=== PATIENT | male | born 1990 | race American Indian/Alaskan Native ===

== ENCOUNTER 2016-11-26 16:07 | Emergency (ER) | payer SELFPAY ==
[2016-11-26] MEDS ORDERED: DELTASONE PO ONE (18:10)
[2016-11-26] MEDS ORDERED: MOTRIN PO ONE (18:10)
[2016-11-26] MEDS ORDERED: NACL 0.9% 1000 ML 1,000 ML IV ONE ×2 (18:10→20:20)
--- NOTE | 2016-11-26 18:13 | Emergency Department Report ---
HPI - General Chief Complaint: Upper Respiratory Infection Time Seen by Provider: 11/26/16 18:09 - HPI HPI: 25-year-old -[place] Citizen male comes in with complaint of upper respiratory symptoms. He complains of body aches, cough and runny nose, nausea vomiting, fever, chills, sneezing and sore throat. He reports he had 2 vomiting episodes last night. He does deny abdominal pain admits to headache. He reports no past medical history and currently takes no medication. ED Past Medical Hx - Past Medical History Previous Medical History?: No - Surgical History Past Surgical History?: No - Social History Smoking Status: Never Smoker Substance Use Type: Alcohol - Medications Home Medications: Home Medications Medication Instructions Recorded Confirmed Last Taken Type Amoxicillin [Trimox CAP] 500 mg PO Q8H #30 capsule 04/02/14 Unknown Rx oxyCODONE /ACETAMINOPHEN [Percocet 1 tab PO Q4-6H PRN #16 tablet 04/02/14 Unknown Rx 5/325] predniSONE [Deltasone] 50 mg PO QDAY #3 tab 04/02/14 Unknown Rx Ibuprofen [Motrin 800 MG tab] 800 mg PO Q8HR PRN #30 tablet 11/26/16 Unknown Rx ED Review of Systems ROS: Stated complaint: FLU SX/DEHYDRATED Other details as noted in HPI Physical Exam - Physical Exam Vital Signs: Vital Signs 11/26/16 16:49 Temperature 100.9 F H Pulse Rate 120 H Respiratory 18 Rate Blood Pressure 111/77 O2 Sat by Pulse 98 Oximetry Physical Exam: GENERAL: Alert and oriented x3, no apparent distress, Normal Gait, atraumatic. HEAD: Head is normocephalic and a-traumatic. EYES: Extra ocular muscles are intact. Pupils are equal, round, and reactive to light and accommodation. EARS: symetrical, atraumatic, non tender, ear canal clear and moderate cerumen, tympanic membrance non inflamed. gross auditory nml bilaterally. NOSE: Nose symetrical, Nontender,Nares appeared normal. Turbinates are enlarged and erythematous no polyps appreciated MOUTH:Mouth is well hydrated and without lesions. Tonsils nerythematous and swollen, Uvula midline, Tongue not elevated. Mucous membranes are moist. Posterior pharynx clear, no exudate or lesions. Patent airways. NECK: Supple. Non edematous, No carotid bruits. No lymphadenopathy or thyromegaly. LUNGS: Symetrical with respiration, No wheezing, no rales or crackles, CTAB. HEART: S1, S2 present, tachycardia rate and rhythm without murmur, no rubs, no gallops. ABDOMEN: No organomegaly was noted,Positive bowel sounds, soft, and non- distended. . Nontender to palpation on all Quadrants, NO CVA tenderness. EXTREMITIES/MUSCULOSKELETAL: No cyanosis, clubbing, rash, lesions or edema. Full ROM bilaterally. UE/LE Pulses 2+ bilaterally. LE and UE 5+ strength bilaterally. NEUROLOGIC: No focal Deficit, Cranial nerves II through XII are grossly intact. No loss of sensation, No facial droop, PSYCHIATRIC: Mood is congruent with affect, SKIN: Warm and dry, No lesions, No ulceration or induration present ED Course Vital Signs 11/26/16 16:49 Temperature 100.9 F H Pulse Rate 120 H Respiratory 18 Rate Blood Pressure 111/77 O2 Sat by Pulse 98 Oximetry ED Medical Decision Making - Medical Decision Making He is evaluated by this provider in fast track. Ordered ibuprofen 800 mg prednisone 40 mg and will send a rapid strep. Critical care attestation.: If time is entered above; I have spent that time in minutes in the direct care of this critically ill patient, excluding procedure time. ED Disposition Clinical Impression: Strep pharyngitis Disposition: DISCHARGED TO HOME OR SELFCARE Is pt being admited?: No Does the pt Need Aspirin: No Condition: Stable Instructions: Strep Throat (ED) Additional Instructions: He can take the Motrin for pain and fever. You have been treated for strep throat with penicillin injection. You can take Motrin for pain and body aches. Drink plenty of fluids. Follow up with her primary care provider if no improvement in 3-5 days. Prescriptions: Ibuprofen [Motrin 800 MG tab] 800 mg PO Q8HR PRN #30 tablet PRN Reason: Pain Referrals: PRIMARY CARE, [Primary Care Provider] - 3-5 Days [facility] [Outside] - 3-5 Days Forms: Work/School Release Form(ED)
[2016-11-26] MEDS ORDERED: BICILLIN L-A IM ONE ×3 (19:27→20:00)
[2016-11-26] MEDS ORDERED: TYLENOL PO ONE (20:20)
[2016-11-26 22:14] VITALS: BP 118/75
== END 2016-11-26 22:15 | disposition home or self-care (01) ==
LOC: ED 16:07
DX: J02.0 Streptococcal pharyngitis (principal)
CPT/HCPCS: 87430; 96360; 96361; 96372; 99283; J0561; J7030; J7512

== ENCOUNTER 2016-12-20 02:33 | Emergency (ER) | payer SELFPAY ==
[2016-12-20 02:56] VITALS: BP 119/73
== END 2016-12-20 08:20 | disposition left against medical advice (07) ==
LOC: ED 02:33
DX: S61.212A Laceration without foreign body of right middle finger without damage to nail, initial encounter (principal); Z53.21 Procedure and treatment not carried out due to patient leaving prior to being seen by health care provider; X58.XXXA Exposure to other specified factors, initial encounter; Y93.9 Activity, unspecified; Y92.9 Unspecified place or not applicable; Y99.9 Unspecified external cause status